=== PATIENT | male | born 1955 | race Caucasian/White ===

== ENCOUNTER 2023-03-26 11:43 | Outpatient (CLI) | payer MEDICARE | END 2023-03-26 11:44 | disposition home or self-care (01) | LOC: RAD 11:43 | PROVIDERS: ATTEND Family Medicine | DX: M25.561 Pain in right knee (principal); R06.02 Shortness of breath | CPT/HCPCS: 71046 ==

== ENCOUNTER 2023-03-26 17:18 | Emergency (ER) | payer MEDICARE ==
[~2023-03-26 17:18] MED LIST: Iopamidol-370 76% 500 ML MDV (1 ML CHARGE) ONE
[2023-03-26 20:13] LABS: PTT 32.1 sec (22.9-36.1); Prothrombin Time 13.1 sec (12.0-14.7)
== END 2023-03-26 20:26 | disposition home or self-care (01) ==
LOC: ERS 17:18
DX: R06.02 Shortness of breath (principal); Z12.5 Encounter for screening for malignant neoplasm of prostate; E78.2 Mixed hyperlipidemia; R53.83 Other fatigue; M25.561 Pain in right knee
CPT/HCPCS: 71046; 71275; 73562; 80061; 81001; 84484 ×2; 84550; 85379; 85610; 85730; 93005; 99285; G0103; 36415; 80053; 84443; 85025; Q9967

== ENCOUNTER 2023-04-29 07:39 | Day surgery (SDC) | payer MEDICARE ==
[2023-04-28 14:57] VITALS: BMI 33.5
[2023-04-29] MEDS ORDERED: Dexamethasone 4 mg/ml Vial ONE (08:12)
[2023-04-29] MEDS ORDERED: Bupivacaine HCl 0.5%/Epinephrine 1:200,000/PF 30 ml Vial ONE (08:12)
[2023-04-29] MEDS ORDERED: Sodium Chloride 0.9% 100 ML ONE (09:40)
[2023-04-29] MEDS ORDERED: CEFAZOLIN 2 GM VIAL ONE (09:40)
[2023-04-29] MEDS ORDERED: Fentanyl 250 MCG/5 ML VIAL ONE (09:44)
[2023-04-29] MEDS ORDERED: PROPOFOL 200 MG/20 ML VIAL ONE (09:50)
[2023-04-29] MEDS ORDERED: ePHEDrine Sulfate 50 MG/10 ML VIAL ONE (09:50)
[2023-04-29] MEDS ORDERED: Lidocaine 1% PF 5 ML VIAL ONE (09:50)
[2023-04-29] MEDS ORDERED: Dexamethasone 20 MG/5 ML VIAL ONE (09:50)
[2023-04-29] MEDS ORDERED: Rocuronium Bromide 10 MG/ML (10ML VIAL) ONE (09:50)
[2023-04-29] MEDS ORDERED: Ondansetron PF 4 MG/2 ML Vial ONE (09:50)
[2023-04-29] MEDS ORDERED: HYDROcodone/Acetaminophen 5/325 mg Tablet ONE (12:39)
== END 2023-04-29 13:30 | disposition home or self-care (01) ==
LOC: SDC 07:39
PROVIDERS: ATTEND Thoracic Surgery (Cardiothoracic Vascular Surgery)
PROC: 0JB60ZZ Excision of Chest Subcutaneous Tissue and Fascia, Open Approach (ICD-10-PCS; principal; 2023-04-29)
DX: D17.1 Benign lipomatous neoplasm of skin and subcutaneous tissue of trunk (principal)
CPT/HCPCS: 88304; J1100; J2405; J2704; J3010; J3490

== ENCOUNTER 2023-05-13 13:16 | Outpatient (CLI) | payer MEDICARE | END 2023-05-13 13:17 | disposition home or self-care (01) | LOC: RAD 13:16 | PROVIDERS: ATTEND Thoracic Surgery (Cardiothoracic Vascular Surgery) | DX: R22.2 Localized swelling, mass and lump, trunk (principal) | CPT/HCPCS: 71046 ==

== ENCOUNTER 2024-03-18 10:38 | Outpatient (CLI) | payer MEDICARE | END 2024-03-18 10:39 | disposition home or self-care (01) | LOC: BICULT 10:38 | PROVIDERS: ATTEND Urology | DX: N20.0 Calculus of kidney (principal); M85.459 Solitary bone cyst, unspecified pelvis; N28.9 Disorder of kidney and ureter, unspecified | CPT/HCPCS: 74018; 76770 ==